=== PATIENT | female | born 1985 | race Caucasian/White ===

== ENCOUNTER 2019-01-06 18:19 | Observation (INO) | payer OTHER ==
[2019-01-06] MEDS ORDERED: Zofran 4 MG/2 ML VIAL IV ONE (18:43)
[2019-01-06] MEDS ORDERED: TYLENOL 325 MG PO STA (18:43)
[2019-01-06] MEDS ORDERED: Sodium Chloride 0.9% 1000 ML 1,000 ML IV STA (18:43)
[2019-01-06] MEDS ORDERED: Unasyn 3GM / NaCl 100ML 3 GM/100 ML IVPB IV STA (18:43)
[2019-01-06] MEDS ORDERED: TENIVAC VIAL IM ONE ×2 (18:46→18:59)
[2019-01-06] MEDS ORDERED: MORPHINE SULFATE 4 MG INJ IV ONE (18:46)
[2019-01-06] MEDS ORDERED: Zofran 4 MG/2 ML VIAL ONE (18:57)
[2019-01-06] MEDS ORDERED: Sodium Chloride 0.9% 1000 ML 1,000 ML ONE (18:58)
[2019-01-06] MEDS ORDERED: MORPHINE SULFATE 4 MG INJ ONE (18:58)
[2019-01-06] MEDS ORDERED: TYLENOL 325 MG ONE (18:58)
[2019-01-06] MEDS ORDERED: Unasyn 3GM / NaCl 100ML 3 GM/100 ML IVPB ONE (18:58)
[2019-01-06 19:03] LABS: Absolute Neutrophil Ct (ANC) 19.19 (1.4-6.9); BASOPHIL % 0.2 % (0.0-0.4); Basophil (Absolute #) 0.04 (0-0.4); Eosinophil % 0.4 % (0.00-5.0); Eosinophil (Absolute #) 0.08 (0-0.5); Hematocrit 39.3 % (35-47); Lymphocytes % 2.9 % (24.0-44.0); Mean Cell Volume 92.5 fl (78-100); Mean Corpuscular Hemoglobin 30.6 pg (26-32); Mean Corpuscular Hgb Concent. 33.1 g/dl (32-36); Mean Platelet Volume 10.2 fl (6-9.5); Monocyte (Absolute #) 0.55 (0.0-1.3); Monocytes % 2.7 % (0.0-12.0); Neutrophil % 93.8 % (36.0-66.0); Platelet Count 216 K/mm3 (150-450); Red Blood Count 4.25 M/mm3 (4.1-5.4); Red Cell Distribution Width 13.4 % (11.5-14.0); White Blood Count 20.5 K/mm3 (4.0-10.5)
[2019-01-06 19:14] LABS: ANION GAP 13.3 MEQ/L (5-15); BLOOD UREA NITROGEN 5 mg/dL (7-17); CHLORIDE 97 mmol/L (98-107); Calcium 8.6 mg/dL (8.4-10.2); Carbon Dioxide 28 mmol/L (22-30); Creatinine 1 0.56 mg/dL (0.52-1.04); Glucose 118 mg/dL (74-106); SODIUM 136 mmol/L (137-145)
[2019-01-06 19:18] LABS: Potassium 2.9 mmol/L (3.5-5.1)
--- NOTE | 2019-01-06 19:19 | ERPHSYRPT ---
<KATELYN SCHUMACHER - Last Filed: 01/06/19 20:52> - History of Present Illness Source: patient Exam Limitations: no limitations Patient Subjective Stated Complaint: Dog bite Triage Nursing Assessment: Patient ambulated into ED and transferred self to bed. Patient A+O X 3. Patient's skin flushed, hot and dry. Patient complains of dog bites to right lower forearm, left breast and left arm. Patient has several open areas with redness of 23cm X 16cm to right lower forearm. Patient has several scabbed areas and bruising to left breast and left forearm. Patient states she was bit by her brother's dog yesterday at 0800. Patient complains of pain 09/03. Timing/Duration: yesterday Severity: severe Associated Symptoms: denies symptoms Hx Tetanus, Diphtheria Vaccination/Date Given: No Hx Influenza Vaccination/Date Given: No Immunizations Up to Date: Yes <VERONIQUE JIMENEZ - Last Filed: 01/07/19 09:06> - History of Present Illness Time Seen by Provider: 01/06/19 18:40 Physician History: in thethe patient is a 33-year-old [id number] female who presents with a chief complaint of a dog bite. She really was bitten by her brother's dog yesterday morning around 8 AM. She reportedly was there 3 times once to the right forearm, wants to the forearm , and she was bitten on the left breast. The bleeding was controlled prior to arrival to the emergency department. Her mother decided to bring her in to the emergency department for further evaluation and management given that the patient's right forearm seem to be more erythematous and swollen compared to yesterday began after the bite. H. and reports that her tetanus prophylaxis is not up-to-date. She's been taking anything for pain or for fever prior to arrival. She's endorsed having weeping apparent drainage coming from the wounds of the right forearm. The pain is described as a throbbing pain, constant, radiating the right arm into her right hand, and is severe. She denies any additional injuries. She denies IV drug use and alcohol use. The patient is a smoker but denies any immunosuppression typically diabetes mellitus. (VERONIQUE JIMENEZ) Allergies/Adverse Reactions: No Known Drug Allergies Allergy (Unverified 01/06/19 18:32) Home Medications: Amitriptyline HCl [Elavil] 100 mg PO HS 01/06/19 [History] Ropinirole HCl [Ropinirole ER] 2 mg PO HS 01/06/19 [History] - Review of Systems Constitutional: Chills Eyes: No Symptoms Ears, Nose, & Throat: No Symptoms Respiratory: No Symptoms, No Cough Cardiac: No Symptoms Genitourinary Symptoms: No Symptoms Musculoskeletal: Other (Pain and tendenress to the R forearm) Skin: Cellulitis, Other (Dog bite to R forearm, L forearm, L breast, and R hand with cellulitis to the R forearm) All Other Systems: Reviewed and Negative <VERONIQUE JIMENEZ - Last Filed: 01/07/19 09:06> - Past Medical History Pertinent Past Medical History: Yes Neurological History: Migraines, Other ENT History: No Pertinent History Cardiac History: No Pertinent History Respiratory History: No Pertinent History Endocrine Medical History: No Pertinent History Musculoskeletal History: No Pertinent History GI Medical History: No Pertinent History History: No Pertinent History Psycho-Social History: No Pertinent History Female Reproductive Disorders: No Pertinent History Other Medical History: Restless leg syndrome - Past Surgical History Past Surgical History: No Neuro Surgical History: No Pertinent History Cardiac: No Pertinent History Respiratory: No Pertinent History Gastrointestinal: Cholecystectomy Genitourinary: No Pertinent History Musculoskeletal: No Pertinent History Female Surgical History: Section, Tubal Ligation - Social History Smoking Status: Current every day smoker How long have you smoked: years Exposure to second hand smoke: No Drug Use: none Patient Lives Alone: No - Female History Hx Last Menstrual Period: irregular Hx Now: No <VERONIQUE JIMENEZ - Last Filed: 01/07/19 09:06> - Physical Exam General Appearance: mild distress Eye Exam: PERRL/EOMI, eyes nml inspection Ears, Nose, Throat Exam: normal ENT inspection Neck Exam: normal inspection Respiratory Exam: normal breath sounds, lungs clear, No chest tenderness, No airway intact, No diminished breath sounds, No accessory muscle use Cardiovascular Exam: normal heart sounds, normal peripheral pulses, tachycardia , capillary refill <2 sec, capillary refill 2-3 sec, edema, other (Tachycardic) , No pulse deficit Gastrointestinal/Abdomen Exam: soft, normal bowel sounds Back Exam: normal inspection Extremity Exam: other (Motor function intact in the ulnar, radial, and medial nerve distribution) Neurologic Exam: alert, oriented x 3, cooperative, other (Sensation in the R and L hand intact and equal to gross touch in the median, ulnar, and radial nerve distribution. Patient was tearful.) Skin Exam: other (Open wound consistent with a bite noted to the anterior/ lateral aspect of the R forearm with multiple small puncture wounds noted medial to this area with serosanquneous drainage and significant amount of surrounding cellulitis. Ecchymosis and supperficial abrasions consistent with bite ordoñez noted to the anterior distal aspect of L wrist/forearm and to the L breast. Puncture wound already covered with eschar noted to the dorasal aspect of the R hand. ) SpO2 Interpretation: normal SpO2: 97 O2 Delivery: Room Air <VERONIQUE JIMENEZ - Last Filed: 01/07/19 09:06> - Nursing Vital Signs Nursing Vital Signs: Initial Vital Signs Temperature 102.9 F 01/06/19 18:35 Pulse Rate 122 H 01/06/19 18:35 Respiratory Rate 20 01/06/19 18:35 Blood Pressure 127/75 01/06/19 18:35 O2 Sat by Pulse Oximetry 97 01/06/19 18:35 Pain Scale Pain Intensity 7 - Course EKG Interpreted by Me: RATE ([id number]), Sinus Tach, NORMAL AXIS, NORMAL INTERVALS, NORMAL QRS, NORMAL ST-T, Other (prolonged QTc; negative previous EKG for comparison) <KATELYN SCHUMACHER - Last Filed: 01/06/19 20:52> - Course Nursing assessment & vital signs reviewed: Yes <VERONIQUE JIMENEZ - Last Filed: 01/07/19 09:06> Ordered Tests: Active Orders 24 hr Category Date Time Status Up Ad Jana TOLERATED Activity 01/06/19 22:15 Active Code Status Order ROUTINE Care 01/06/19 22:15 Active EKG-ER Only STAT Care 01/06/19 20:[address] in Observation ROUTINE Care 01/06/19 22:15 Active Saline Lock ROUTINE Care 01/06/19 22:15 Active Telemetry q6h Care 01/06/19 22:15 Active Weight,Daily 0600 Care 01/06/19 22:15 Active Wound Care Routine Care 01/06/19 18:47 Completed FOREARM Stat Exams 01/06/19 19:29 Completed BLOOD CULTURE Stat Lab 01/06/19 19:01 Received BMP AM.LAB Lab 01/07/19 04:25 Completed BMP Stat Lab 01/06/19 19:01 Completed CBC W DIFF AM.LAB Lab 01/07/19 04:25 Completed CBC W DIFF Stat Lab 01/06/19 19:01 Completed CULTURE,WOUND Stat Lab 01/07/19 21:33 Received HCG QUALITATIVE,SERUM Stat Lab 01/06/19 19:01 Completed Lactic Acid Stat Lab 01/06/19 20:15 Completed MAGNESIUM Stat Lab 01/06/19 19:00 Completed UA W/RFX UR CULTURE Stat Lab 01/06/19 20:00 Completed EKG REPEAT IN AM RT 01/06/19 22:15 Completed Pulse Oximetry CONTINUOUS RT 01/06/19 22:15 Active Medication Summary Generic Name Dose Route Start Last Admin Trade Name Freq PRN Reason Stop Dose Admin Acetaminophen 325 mg 01/06/19 22:15 Tylenol 325 Mg PO 02/05/19 22:14 Q4H PRN PRN PAIN, FEVER, HEADACHE Amitriptyline HCl 100 mg 01/07/19 22:00 Amitriptyline Hcl 50 Mg Tablet PO 02/06/19 21:59 HS CAROLYNE Enoxaparin Sodium 40 mg 01/07/19 10:00 Enoxaparin Sodium SQ 02/06/19 09:59 DAILY CAROLYNE Famotidine 20 mg 01/06/19 22:15 01/07/19 01:04 Pepcid 20 Mg PO 02/05/19 22:14 20 mg BID CAROLYNE Administration Sodium Chloride 1,000 mls @ 200 mls/hr 01/06/19 22:15 01/07/19 07:59 Sodium Chloride 0.9% 1000 Ml IV 02/05/19 22:14 200 mls/hr .Q5H CAROLYNE Administration Ampicillin Sodium/Sulbactam Sodium 3 gm in 100 mls @ 200 mls/hr 01/07/19 07: 00 01/07/19 07:59 Unasyn 3gm / Nacl 100ml IV 02/06/19 06:59 200 mls/hr Q6HT CAROLYNE Administration Morphine Sulfate 4 mg 01/06/19 22:15 01/07/19 04:22 Morphine Sulfate 4 Mg Inj IV 01/11/19 22:14 4 mg Q4H PRN PRN Administration PAIN Mupirocin 1 gm 01/07/19 08:48 Bactroban Ointment TP 02/06/19 08:47 PRN PRN dressing change Ondansetron HCl 4 mg 01/06/19 22:15 Zofran 4 Mg/2 Ml Vial IV 02/05/19 22:14 Q8H PRN PRN NAUSEA/VOMITING Ropinirole HCl 2 mg 01/07/19 22:00 Requip 2mg Tab PO 02/06/19 21:59 HS CAROLYNE Discontinued Medications Generic Name Dose Route Start Last Admin Trade Name Freq PRN Reason Stop Dose Admin Acetaminophen 975 mg 01/06/19 18:43 01/06/19 19:25 Tylenol 325 Mg PO 01/06/19 18:44 975 mg STAT STA Administration Acetaminophen Confirm 01/06/19 18:58 Tylenol 325 Mg Administered 01/06/19 18:59 Dose 975 mg .ROUTE .STK-MED ONE Diphtheria/Tetanus/Acell Pertussis 0.5 ml 01/06/19 19:36 01/06/19 20:00 Adacel Vial IM 01/06/19 19:37 0.5 ml .ONCE ONE Administration Sodium Chloride 1,000 mls @ 999 mls/hr 01/06/19 18:43 01/06/19 19:25 Sodium Chloride 0.9% 1000 Ml IV 01/06/19 19:43 999 mls/hr .Q1H1M STA Administration Ampicillin Sodium/Sulbactam Sodium 3 gm in 100 mls @ 200 mls/hr 01/06/19 18: 43 01/06/19 19:22 Unasyn 3gm / Nacl 100ml IV 01/06/19 19:12 200 mls/hr STAT STA 200 mls/hr Administration Sodium Chloride Confirm 01/06/19 18:58 Sodium Chloride 0.9% 1000 Ml Administered 01/06/19 18:59 Dose 1,000 mls @ ud .ROUTE .STK-MED ONE Ampicillin Sodium/Sulbactam Sodium Confirm 01/06/19 18:58 Unasyn 3gm / Nacl 100ml Administered 01/06/19 18:59 Dose 3 gm in 100 mls @ ud .ROUTE .STK-MED ONE Potassium Chloride/Sodium Chloride 1,000 mls @ 100 mls/hr 01/06/19 19:30 Sodium Chloride 0.9% W/ 20 Meq Kcl/Liter IV 02/05/19 19:29 .Q10H CAROLYNE Magnesium Sulfate/Dextrose 100 mls @ 200 mls/hr 01/06/19 19:40 01/06/19 20:00 Magnesium 1 Gm / 100 Ml D5w IV 01/06/19 20:09 200 mls/hr STAT ONE Administration Magnesium Sulfate/Dextrose Confirm 01/06/19 19:58 Magnesium 1 Gm / 100 Ml D5w Administered 01/06/19 19:59 Dose 100 mls @ ud IV .STK-MED ONE Ampicillin Sodium/Sulbactam Sodium 3 gm in 100 mls @ 200 mls/hr 01/07/19 00: 00 Unasyn 3gm / Nacl 100ml IV 02/06/19 00:00 Q6HT CAROLYNE Ampicillin Sodium/Sulbactam Sodium Confirm 01/07/19 00:27 Unasyn 3gm / Nacl 100ml Administered 01/07/19 00:28 Dose 3 gm in 100 mls @ ud .ROUTE .STK-MED ONE Ampicillin Sodium/Sulbactam Sodium 3 gm in 100 mls @ 200 mls/hr 01/07/19 01: 00 01/07/19 01:03 Unasyn 3gm / Nacl 100ml IV 02/06/19 00:59 200 mls/hr Q6HT CAROLYNE Administration Morphine Sulfate 6 mg 01/06/19 18:46 01/06/19 19:17 Morphine Sulfate 4 Mg Inj IV 01/06/19 18:47 6 mg STAT ONE Administration Morphine Sulfate Confirm 01/06/19 18:58 Morphine Sulfate 4 Mg Inj Administered 01/06/19 18:59 Dose 8 mg .ROUTE .STK-MED ONE Ondansetron HCl 4 mg 01/06/19 18:43 01/06/19 19:21 Zofran 4 Mg/2 Ml Vial IV 01/06/19 18:44 4 mg STAT ONE Administration Ondansetron HCl Confirm 01/06/19 18:57 Zofran 4 Mg/2 Ml Vial Administered 01/06/19 18:58 Dose 4 mg .ROUTE .STK-MED ONE Potassium Chloride 40 meq 01/06/19 19:23 01/06/19 20:03 Klor Con 10 Meq PO 01/06/19 19:24 40 meq STAT ONE Administration Potassium Chloride Confirm 01/06/19 19:38 Klor Con 10 Meq Administered 01/06/19 19:39 Dose 40 meq PO .STK-MED ONE Tetanus/Diphtheria Toxoids Adsorbed 0.5 ml 01/06/19 18:46 Tenivac Vial IM 01/06/19 18:47 .ONCE ONE Tetanus/Diphtheria Toxoids Adsorbed Confirm 01/06/19 18:59 Tenivac Vial Administered 01/06/19 19:00 Dose 0.5 ml IM .STK-MED ONE Lab/Rad Data: Laboratory Result Diagrams 01/06/19 19:01 01/06/19 19:01 Laboratory Results 01/06/19 01/06/19 01/06/19 Range/Units 20:15 20:00 19:01 WBC (4.0-10.5) K/mm3 RBC (4.1-5.4) M/mm3 Hgb (12.0-16.0) gm/dl Hct (35-47) % MCV (78-100) fl MCH (26-32) pg MCHC (32-36) g/dl RDW (11.5-14.0) % Plt Count (150-450) K/mm3 MPV (6-9.5) fl Gran % (36.0-66.0) % Eos # (Auto) (0-0.5) Absolute Lymphs (auto) (1.0-4.6) Absolute Monos (auto) (0.0-1.3) Lymphocytes % (24.0-44.0) % Monocytes % (0.0-12.0) % Eosinophils % (0.00-5.0) % Basophils % (0.0-0.4) % Absolute Granulocytes (1.4-6.9) Basophils # (0-0.4) Sodium (137-145) mmol/L Potassium (3.5-5.1) mmol/L Chloride (98-107) mmol/L Carbon Dioxide (22-30) mmol/L Anion Gap (5-15) MEQ/L BUN (7-17) mg/dL Creatinine (0.52-1.04) mg/dL Estimated GFR ML/MIN Glucose (74-106) mg/dL Lactic Acid 1.8 (0.4-2.0) Calcium (8.4-10.2) mg/dL Magnesium (1.6-2.3) mg/dL Serum , Qual NEGATIVE (Negative) Urine Color YELLOW (YELLOW) Urine Appearance SLIGHTLY CLOUDY (CLEAR) Urine pH 6.0 (5-6) Ur Specific [place] 1.004 (1.005-1.025) Urine Protein NEGATIVE (Negative) Urine Ketones NEGATIVE (NEGATIVE) Urine Blood NEGATIVE (0-5) Rohit/ul Urine Nitrite NEGATIVE (NEGATIVE) Urine Bilirubin NEGATIVE (NEGATIVE) Urine Urobilinogen NEGATIVE (0-1) mg/dL Ur Leukocyte Esterase NEGATIVE (NEGATIVE) Urine WBC (Auto) 3-5 (0-5) /HPF Urine RBC (Auto) 0-2 (0-2) /HPF U Epithel Cells (Auto) RARE (FEW) /HPF Urine Bacteria (Auto) NONE (NEGATIVE) /HPF Urine Culture Reflexed NO (NO) Urine Glucose NEGATIVE (NEGATIVE) mg/dL 01/06/19 01/06/19 01/06/19 Range/Units 19:01 19:01 19:00 WBC 20.5 H (4.0-10.5) K/mm3 RBC 4.25 (4.1-5.4) M/mm3 Hgb 13.0 (12.0-16.0) gm/dl Hct 39.3 (35-47) % MCV 92.5 (78-100) fl MCH 30.6 (26-32) pg MCHC 33.1 (32-36) g/dl RDW 13.4 (11.5-14.0) % Plt Count 216 (150-450) K/mm3 MPV 10.2 H (6-9.5) fl Gran % 93.8 H (36.0-66.0) % Eos # (Auto) 0.08 (0-0.5) Absolute Lymphs (auto) 0.60 L (1.0-4.6) Absolute Monos (auto) 0.55 (0.0-1.3) Lymphocytes % 2.9 L (24.0-44.0) % Monocytes % 2.7 (0.0-12.0) % Eosinophils % 0.4 (0.00-5.0) % Basophils % 0.2 (0.0-0.4) % Absolute Granulocytes 19.19 H (1.4-6.9) Basophils # 0.04 (0-0.4) Sodium 136 L (137-145) mmol/L Potassium 2.9 L* (3.5-5.1) mmol/L Chloride 97 L (98-107) mmol/L Carbon Dioxide 28 (22-30) mmol/L Anion Gap 13.3 (5-15) MEQ/L BUN 5 L (7-17) mg/dL Creatinine 0.56 (0.52-1.04) mg/dL Estimated GFR > 60.0 ML/MIN Glucose 118 H (74-106) mg/dL Lactic Acid (0.4-2.0) Calcium 8.6 (8.4-10.2) mg/dL Magnesium 1.4 L (1.6-2.3) mg/dL Serum , Qual (Negative) Urine Color (YELLOW) Urine Appearance (CLEAR) Urine pH (5-6) Ur Specific [place] (1.005-1.025) Urine Protein (Negative) Urine Ketones (NEGATIVE) Urine Blood (0-5) Rohit/ul Urine Nitrite (NEGATIVE) Urine Bilirubin (NEGATIVE) Urine Urobilinogen (0-1) mg/dL Ur Leukocyte Esterase (NEGATIVE) Urine WBC (Auto) (0-5) /HPF Urine RBC (Auto) (0-2) /HPF U Epithel Cells (Auto) (FEW) /HPF Urine Bacteria (Auto) (NEGATIVE) /HPF Urine Culture Reflexed (NO) Urine Glucose (NEGATIVE) mg/dL - Progress Discussed with : Harshad (@20:47, spoke with Dr Love, hospitalist at [facility] about the patient and her presentation and lab results. Dr Love accepted the patient for observation to [facility].) Will see patient in: hospital (observation) Counseled pt/family regarding: lab results, diagnosis, need for follow-up, rad results <KATELYN SCHUMACHER - Last Filed: 01/06/19 20:52> - Progress Progress: unchanged <VERONIQUE JIMENEZ - Last Filed: 01/07/19 09:06> - Progress Progress Note: 01/06/19 19:25 the patient presents with a chief complaint of an ongoing and appears to have an open wound with purulent drainage noted to the right forearm and significant cellulitis. Given the patient is febrile tachycardic and with the source of her stairs and a cellulitis of the right forearm secondary to this plan I suspect the patient is septic from this. She's received 3 g of Unasyn in the emergency department and a sepsis workup is currently pending I would have been ordered a plain film of the right forearm the above evidence of foreign body,fracture, or evidence of free air there was suggests forming organism as the culprit of her cellulitis. I informed the patient that she would necessitate admission for IV antibiotics but currently she is refusing admission at this time for concerns for childcare. Her mother is with her at bedside attempting to convince her to stay for admission. Patient cares has been transitioned to workup plan for admission if the patient agrees. Otherwise, the patient wanted to sign out AMA and was sent home with antibiotic therapy in addition to pain medication. 01/07/19 09:02 (VERONIQUE JIMENEZ) - Departure Departure Disposition: Observation ([facility] to telemetry to Dr Love) Critical Care Time: No <KATELYN SCHUMACHER - Last Filed: 01/06/19 20:52> <VERONIQUE JIMENEZ - Last Filed: 01/07/19 09:06> - Departure Clinical Impression: Cellulitis of right forearm, Dog bite of multiple sites, Hypokalemia, Hypomagnesemia, Sepsis Dog bite of right forearm with infection Qualifiers: Encounter type: initial encounter Qualified Code(s): S51.851A - Open bite of right forearm, initial encounter Condition: Fair
[2019-01-06] MEDS ORDERED: Klor Con 10 MEQ PO ONE ×2 (19:23→19:38)
[2019-01-06] MEDS ORDERED: Sodium Chloride 0.9% W/ 20 mEq KCl/LITER 1,000 ML IV SCH (19:30)
[2019-01-06] MEDS ORDERED: Adacel Vial IM ONE (19:36)
[2019-01-06] MEDS ORDERED: Magnesium 1 Gm / 100 Ml D5W*** 100 ML IV ONE ×2 (19:40→19:58)
[2019-01-06 21:02] LABS: Appearance SLIGHTLY CLOUDY (CLEAR); Bilirubin NEGATIVE (NEGATIVE); Blood NEGATIVE Ery/ul (0-5); Epithelial Cells RARE /HPF (FEW); Glucose NEGATIVE (NEGATIVE); Ketones NEGATIVE (NEGATIVE); Leukocyte Esterase NEGATIVE (NEGATIVE); Nitrite NEGATIVE (NEGATIVE); Protein,Urine Dip NEGATIVE (Negative); RBC 0-2 /HPF (0-2); Specific Gravity 1.004 (1.005-1.025); Urobilinogen NEGATIVE mg/dL (0-1)
[2019-01-06] MEDS ORDERED: TYLENOL 325 MG PO PRN (22:15)
[2019-01-06] MEDS ORDERED: Zofran 4 MG/2 ML VIAL IV PRN (22:15)
[2019-01-06] MEDS: Sodium Chloride 0.9% 1000 ML 1,000 ML IV SCH (23:27)
[2019-01-07] MEDS ORDERED: Unasyn 3GM / NaCl 100ML 3 GM/100 ML IVPB ONE (00:27)
[2019-01-07] MEDS ORDERED: Unasyn 3GM / NaCl 100ML 3 GM/100 ML IVPB IV SCH ×2 (01:00)
[2019-01-07] MEDS: Pepcid 20 MG PO SCH ×3 (01:04→21:04)
[2019-01-07] MEDS: Sodium Chloride 0.9% 1000 ML 1,000 ML IV SCH ×4 (04:22→22:20)
[2019-01-07] MEDS: MORPHINE SULFATE 4 MG INJ IV PRN ×5 (04:22→20:56)
[2019-01-07 04:57] LABS: Absolute Neutrophil Ct (ANC) 12.92 (1.4-6.9); BASOPHIL % 0.1 % (0.0-0.4); Basophil (Absolute #) 0.02 (0-0.4); Eosinophil (Absolute #) 0.14 (0-0.5); Hematocrit 34.2 % (35-47); Hemoglobin 10.9 gm/dl (12.0-16.0); Lymphocyte (Absolute #) 0.68 (1.0-4.6); Lymphocytes % 4.8 % (24.0-44.0); Mean Corpuscular Hgb Concent. 31.9 g/dl (32-36); Mean Platelet Volume 10.3 fl (6-9.5); Monocyte (Absolute #) 0.43 (0.0-1.3); Neutrophil % 91.1 % (36.0-66.0); Platelet Count 182 K/mm3 (150-450); Red Cell Distribution Width 13.6 % (11.5-14.0); White Blood Count 14.2 K/mm3 (4.0-10.5)
[2019-01-07 05:00] LABS: Mean Corpuscular Hemoglobin 30.2 pg (26-32)
[2019-01-07 05:02] LABS: ANION GAP 8.2 MEQ/L (5-15); BLOOD UREA NITROGEN 8 mg/dL (7-17); CHLORIDE 106 mmol/L (98-107); Calcium 7.5 mg/dL (8.4-10.2); Carbon Dioxide 29 mmol/L (22-30); Glucose 141 mg/dL (74-106); MAGNESIUM 2.1 mg/dL (1.6-2.3); Potassium 3.1 mmol/L (3.5-5.1); SODIUM 140 mmol/L (137-145)
[2019-01-07] MEDS: Unasyn 3GM / NaCl 100ML 3 GM/100 ML IVPB IV SCH ×3 (07:59→18:00)
--- NOTE | 2019-01-07 08:42 | PCM.HP ---
History of Present Illness - Chief Complaint Chief Complaint: Right forearm swelling due to dog bite History of Present Illness: is a 33 year old female.Patient complains of dog bites to right lower forearm, left breast and left arm. Patient has several open areas with redness of 23cm X 16cm to right lower forearm. Patient has several scabbed areas and bruising to left breast and left forearm. Patient states she was bit by her brother's dog yesterday at 0800. Patient complains of pain 09/03. Timing/Duration: yesterday Severity: severe Associated Symptoms: denies symptoms Hx Tetanus, Diphtheria Vaccination/Date Given: No Hx Influenza Vaccination/Date Given: No - Review of Systems Constitutional: No Fever, No Chills Eyes: No Symptoms Ears, Nose, & Throat: No Symptoms Respiratory: No Cough, No Short Of Breath Cardiac: No Chest Pain, No Edema, No Syncope Abdominal/Gastrointestinal: No Abdominal Pain, No Nausea, No Vomiting, No Diarrhea Genitourinary Symptoms: No Dysuria Musculoskeletal: No Back Pain, No Neck Pain Skin: No Rash Neurological: No Dizziness, No Focal Weakness, No Sensory Changes Psychological: No Symptoms Endocrine: No Symptoms Hematologic/Lymphatic: No Symptoms Immunological/Allergic: No Symptoms Medications & Allergies Home Medications: Home Medication List Amitriptyline HCl [Elavil] 100 mg PO HS 01/06/19 [History Confirmed 01/06/19] Ropinirole HCl [Ropinirole ER] 2 mg PO HS 01/06/19 [History Confirmed 01/06/19] Allergies/Adverse Reactions: Allergies Allergy/AdvReac Type Severity Reaction Status Date / Time No Known Drug Allergies Allergy Unverified 01/06/19 18:32 - Past Medical History Past Medical History: Yes Neurological History: Migraines, Other ENT History: No Pertinent History Cardiac History: No Pertinent History Respiratory History: No Pertinent History Endocrine Medical History: No Pertinent History Musculoskelatal History: No Pertinent History GI Medical History: No Pertinent History History: No Pertinent History Pyscho-Social History: No Pertinent History Reproductive Disorders: No Pertinent History Comment: Restless leg syndrome - Female History Hx Last Menstrual Period: irregular Are you now?: No - Past Surgical History Past Surgical History: No Neuro Surgical History: No Pertinent History Cardiac History: No Pertinent History Respiratory Surgery: No Pertinent History GI Surgical History: Cholecystectomy Genitourinary Surgical Hx: No Pertinent History Musculskeletal Surgical Hx: No Pertinent History Female Surgical History: Section, Tubal Ligation - Social History Smoking Status: Current every day smoker How long have you smoked: years Exposure to second hand smoke: Yes Alcohol: None Drug Use: none - Physical Exam Vital Signs: Vital Signs - 24 hr Temp Pulse Resp BP Pulse Ox 01/07/19 07:42 99.5 F 66 17 111/56 96 01/07/19 04:00 99.5 F 106 H 14 97/53 95 01/07/19 00:06 98.9 F 104 H 16 98/52 94 L 01/06/19 23:55 99.3 F 63 16 100/51 94 L 01/06/19 22:15 94 L 01/06/19 21:21 100.8 F 01/06/19 19:28 97 01/06/19 18:35 102.9 F 122 H 20 127/75 97 Oxygen-Last 24 hours O2 Percentage 2 Liters = 28% General Appearance: no apparent distress, alert Neurologic Exam: alert, oriented x 3, cooperative, normal mood/affect, nml cerebellar function, nml station & gait, sensation nml, No motor deficits Eye Exam: PERRL/EOMI, eyes nml inspection Ears, Nose, Throat Exam: normal ENT inspection, TMs normal, pharynx normal, moist mucous membranes Neck Exam: normal inspection, non-tender, supple, full range of motion Respiratory Exam: normal breath sounds, lungs clear, No respiratory distress Cardiovascular Exam: regular rate/rhythm, normal heart sounds, normal peripheral pulses Gastrointestinal/Abdomen Exam: soft, normal bowel sounds, No tenderness, No mass Back Exam: normal inspection, normal range of motion, No CVA tenderness, No vertebral tenderness Extremity Exam: normal inspection, normal range of motion, pelvis stable Skin Exam: normal color, warm, dry, laceration, No rash Wound Assessment: Skin/Wound Assessment Wound/Incision Assessment Start: 01/07/19 00: 46 Text: Status: Active Freq: Q6H Protocol: Document 01/07/19 06:46 (Rec: 01/07/19 06:47 [id number]) Wound Photo Photo Taken No Lymphatic Exam: No adenopathy Results - Labs Lab/Micro Results: Lab Results-Last 24 Hours 11/12/19 11/12/19 11/12/19 Range/Units 19:00 19:01 19:01 WBC 20.5 H (4.0-10.5) K/mm3 RBC 4.25 (4.1-5.4) M/mm3 Hgb 13.0 (12.0-16.0) gm/dl Hct 39.3 (35-47) % MCV 92.5 (78-100) fl MCH 30.6 (26-32) pg MCHC 33.1 (32-36) g/dl RDW 13.4 (11.5-14.0) % Plt Count 216 (150-450) K/mm3 MPV 10.2 H (6-9.5) fl Gran % 93.8 H (36.0-66.0) % Eos # (Auto) 0.08 (0-0.5) Absolute Lymphs (auto) 0.60 L (1.0-4.6) Absolute Monos (auto) 0.55 (0.0-1.3) Lymphocytes % 2.9 L (24.0-44.0) % Monocytes % 2.7 (0.0-12.0) % Eosinophils % 0.4 (0.00-5.0) % Basophils % 0.2 (0.0-0.4) % Absolute Granulocytes 19.19 H (1.4-6.9) Basophils # 0.04 (0-0.4) Sodium 136 L (137-145) mmol/L Potassium 2.9 L* (3.5-5.1) mmol/L Chloride 97 L (98-107) mmol/L Carbon Dioxide 28 (22-30) mmol/L Anion Gap 13.3 (5-15) MEQ/L BUN 5 L (7-17) mg/dL Creatinine 0.56 (0.52-1.04) mg/dL Estimated GFR > 60.0 ML/MIN Glucose 118 H (74-106) mg/dL Lactic Acid (0.4-2.0) Calcium 8.6 (8.4-10.2) mg/dL Magnesium 1.4 L (1.6-2.3) mg/dL Serum , Qual (Negative) Urine Color (YELLOW) Urine Appearance (CLEAR) Urine pH (5-6) Ur Specific [place] (1.005-1.025) Urine Protein (Negative) Urine Ketones (NEGATIVE) Urine Blood (0-5) Rohit/ul Urine Nitrite (NEGATIVE) Urine Bilirubin (NEGATIVE) Urine Urobilinogen (0-1) mg/dL Ur Leukocyte Esterase (NEGATIVE) Urine WBC (Auto) (0-5) /HPF Urine RBC (Auto) (0-2) /HPF U Epithel Cells (Auto) (FEW) /HPF Urine Bacteria (Auto) (NEGATIVE) /HPF Urine Culture Reflexed (NO) Urine Glucose (NEGATIVE) mg/dL 01/06/19 01/06/19 01/06/19 Range/Units 19:01 20:00 20:15 WBC (4.0-10.5) K/mm3 RBC (4.1-5.4) M/mm3 Hgb (12.0-16.0) gm/dl Hct (35-47) % MCV (78-100) fl MCH (26-32) pg MCHC (32-36) g/dl RDW (11.5-14.0) % Plt Count (150-450) K/mm3 MPV (6-9.5) fl Gran % (36.0-66.0) % Eos # (Auto) (0-0.5) Absolute Lymphs (auto) (1.0-4.6) Absolute Monos (auto) (0.0-1.3) Lymphocytes % (24.0-44.0) % Monocytes % (0.0-12.0) % Eosinophils % (0.00-5.0) % Basophils % (0.0-0.4) % Absolute Granulocytes (1.4-6.9) Basophils # (0-0.4) Sodium (137-145) mmol/L Potassium (3.5-5.1) mmol/L Chloride (98-107) mmol/L Carbon Dioxide (22-30) mmol/L Anion Gap (5-15) MEQ/L BUN (7-17) mg/dL Creatinine (0.52-1.04) mg/dL Estimated GFR ML/MIN Glucose (74-106) mg/dL Lactic Acid 1.8 (0.4-2.0) Calcium (8.4-10.2) mg/dL Magnesium (1.6-2.3) mg/dL Serum , Qual NEGATIVE (Negative) Urine Color YELLOW (YELLOW) Urine Appearance SLIGHTLY CLOUDY (CLEAR) Urine pH 6.0 (5-6) Ur Specific [place] 1.004 (1.005-1.025) Urine Protein NEGATIVE (Negative) Urine Ketones NEGATIVE (NEGATIVE) Urine Blood NEGATIVE (0-5) Rohit/ul Urine Nitrite NEGATIVE (NEGATIVE) Urine Bilirubin NEGATIVE (NEGATIVE) Urine Urobilinogen NEGATIVE (0-1) mg/dL Ur Leukocyte Esterase NEGATIVE (NEGATIVE) Urine WBC (Auto) 3-5 (0-5) /HPF Urine RBC (Auto) 0-2 (0-2) /HPF U Epithel Cells (Auto) RARE (FEW) /HPF Urine Bacteria (Auto) NONE (NEGATIVE) /HPF Urine Culture Reflexed NO (NO) Urine Glucose NEGATIVE (NEGATIVE) mg/dL 01/07/19 01/07/19 Range/Units 04:25 04:25 WBC 14.2 H (4.0-10.5) K/mm3 RBC 3.60 L (4.1-5.4) M/mm3 Hgb 10.9 L (12.0-16.0) gm/dl Hct 34.2 L (35-47) % MCV 95.0 (78-100) fl MCH 30.2 (26-32) pg MCHC 31.9 L (32-36) g/dl RDW 13.6 (11.5-14.0) % Plt Count 182 (150-450) K/mm3 MPV 10.3 H (6-9.5) fl Gran % 91.1 H (36.0-66.0) % Eos # (Auto) 0.14 (0-0.5) Absolute Lymphs (auto) 0.68 L (1.0-4.6) Absolute Monos (auto) 0.43 (0.0-1.3) Lymphocytes % 4.8 L (24.0-44.0) % Monocytes % 3.0 (0.0-12.0) % Eosinophils % 1.0 (0.00-5.0) % Basophils % 0.1 (0.0-0.4) % Absolute Granulocytes 12.92 H (1.4-6.9) Basophils # 0.02 (0-0.4) Sodium 140 (137-145) mmol/L Potassium 3.1 L (3.5-5.1) mmol/L Chloride 106 (98-107) mmol/L Carbon Dioxide 29 (22-30) mmol/L Anion Gap 8.2 (5-15) MEQ/L BUN 8 (7-17) mg/dL Creatinine 0.50 L (0.52-1.04) mg/dL Estimated GFR > 60.0 ML/MIN Glucose 141 H (74-106) mg/dL Lactic Acid (0.4-2.0) Calcium 7.5 L (8.4-10.2) mg/dL Magnesium 2.1 (1.6-2.3) mg/dL Serum , Qual (Negative) Urine Color (YELLOW) Urine Appearance (CLEAR) Urine pH (5-6) Ur Specific [place] (1.005-1.025) Urine Protein (Negative) Urine Ketones (NEGATIVE) Urine Blood (0-5) Rohit/ul Urine Nitrite (NEGATIVE) Urine Bilirubin (NEGATIVE) Urine Urobilinogen (0-1) mg/dL Ur Leukocyte Esterase (NEGATIVE) Urine WBC (Auto) (0-5) /HPF Urine RBC (Auto) (0-2) /HPF U Epithel Cells (Auto) (FEW) /HPF Urine Bacteria (Auto) (NEGATIVE) /HPF Urine Culture Reflexed (NO) Urine Glucose (NEGATIVE) mg/dL - Radiology Impressions Radiology Exams & Impressions: Radiology Procedures Category Date Time Status FOREARM Stat Exams 01/06/19 19:29 Taken - Other Procedures and Tests Respiratory Therapy 01/07/19 04:47 Oxygen Nasal Cannula 2 lpm Assessment/Plan (1) Cellulitis of right forearm Current Visit: Yes Status: Acute Assessment & Plan: Chief Complaint Diagnosis Right forearm cellulitis / dog bite Allergies Allergy/AdvReac Type Severity Reaction Status Date / Time No Known Drug Allergies Allergy Unverified 01/06/19 18:32 Vital Signs (Last 24 hours) Temp Pulse Resp BP Pulse Ox 01/07/19 07:42 99.5 F 66 17 111/56 96 01/07/19 04:00 99.5 F 106 H 14 97/53 95 01/07/19 00:06 98.9 F 104 H 16 98/52 94 L 01/06/19 23:55 99.3 F 63 16 100/51 94 L 01/06/19 22:15 94 L 01/06/19 21:21 100.8 F 01/06/19 19:28 97 01/06/19 18:35 102.9 F 122 H 20 127/75 97 Home Medications Medication Instructions Recorded Confirmed Last Taken Type Amitriptyline HCl [Elavil] 100 mg PO HS 01/06/19 01/06/19 01/05/19 History Ropinirole HCl [Ropinirole ER] 2 mg PO HS 01/06/19 01/06/19 01/06/19 History Current Medications Generic Name Dose Route Start Last Admin Trade Name Freq PRN Reason Stop Dose Admin Acetaminophen 325 mg 01/06/19 22:15 Tylenol 325 Mg PO 02/05/19 22:14 Q4H PRN PRN PAIN, FEVER, HEADACHE Amitriptyline HCl 100 mg 01/07/19 22:00 Amitriptyline Hcl 50 Mg Tablet PO 02/06/19 21:59 HS CAROLYNE Enoxaparin Sodium 40 mg 01/07/19 10:00 Enoxaparin Sodium SQ 02/06/19 09:59 DAILY CAROLYNE Famotidine 20 mg 01/06/19 22:15 01/07/19 01:04 Pepcid 20 Mg PO 02/05/19 22:14 20 mg BID CAROLYNE Administration Sodium Chloride 1,000 mls @ 200 mls/hr 01/06/19 22:15 01/07/19 07:59 Sodium Chloride 0.9% 1000 Ml IV 02/05/19 22:14 200 mls/hr .Q5H CAROLYNE Administration Ampicillin Sodium/Sulbactam Sodium 3 gm in 100 mls @ 200 mls/hr 01/07/19 07: 00 01/07/19 07:59 Unasyn 3gm / Nacl 100ml IV 02/06/19 06:59 200 mls/hr Q6HT CAROLYNE Administration Morphine Sulfate 4 mg 01/06/19 22:15 01/07/19 04:22 Morphine Sulfate 4 Mg Inj IV 01/11/19 22:14 4 mg Q4H PRN PRN Administration PAIN Ondansetron HCl 4 mg 01/06/19 22:15 Zofran 4 Mg/2 Ml Vial IV 02/05/19 22:14 Q8H PRN PRN NAUSEA/VOMITING Ropinirole HCl 2 mg 01/07/19 22:00 Requip 2mg Tab PO 02/06/19 21:59 HS CAROLYNE Discontinued Medications Generic Name Dose Route Start Last Admin Trade Name Buddy PRN Reason Stop Dose Admin Acetaminophen 975 mg 01/06/19 18:43 01/06/19 19:25 Tylenol 325 Mg PO 01/06/19 18:44 975 mg STAT STA Administration Acetaminophen Confirm 01/06/19 18:58 Tylenol 325 Mg Administered 01/06/19 18:59 Dose 975 mg .ROUTE .STK-MED ONE Diphtheria/Tetanus/Acell Pertussis 0.5 ml 01/06/19 19:36 01/06/19 20:00 Adacel Vial IM 01/06/19 19:37 0.5 ml .ONCE ONE Administration Sodium Chloride 1,000 mls @ 999 mls/hr 01/06/19 18:43 01/06/19 19:25 Sodium Chloride 0.9% 1000 Ml IV 01/06/19 19:43 999 mls/hr .Q1H1M STA Administration Ampicillin Sodium/Sulbactam Sodium 3 gm in 100 mls @ 200 mls/hr 01/06/19 18: 43 01/06/19 19:22 Unasyn 3gm / Nacl 100ml IV 01/06/19 19:12 200 mls/hr STAT STA 200 mls/hr Administration Sodium Chloride Confirm 01/06/19 18:58 Sodium Chloride 0.9% 1000 Ml Administered 01/06/19 18:59 Dose 1,000 mls @ ud .ROUTE .STK-MED ONE Ampicillin Sodium/Sulbactam Sodium Confirm 01/06/19 18:58 Unasyn 3gm / Nacl 100ml Administered 01/06/19 18:59 Dose 3 gm in 100 mls @ ud .ROUTE .STK-MED ONE Potassium Chloride/Sodium Chloride 1,000 mls @ 100 mls/hr 01/06/19 19:30 Sodium Chloride 0.9% W/ 20 Meq Kcl/Liter IV 02/05/19 19:29 .Q10H CAROLYNE Magnesium Sulfate/Dextrose 100 mls @ 200 mls/hr 01/06/19 19:40 01/06/19 20:00 Magnesium 1 Gm / 100 Ml D5w IV 01/06/19 20:09 200 mls/hr STAT ONE Administration Magnesium Sulfate/Dextrose Confirm 01/06/19 19:58 Magnesium 1 Gm / 100 Ml D5w Administered 01/06/19 19:59 Dose 100 mls @ ud IV .STK-MED ONE Ampicillin Sodium/Sulbactam Sodium 3 gm in 100 mls @ 200 mls/hr 01/07/19 00: 00 Unasyn 3gm / Nacl 100ml IV 02/06/19 00:00 Q6HT CAROLYNE Ampicillin Sodium/Sulbactam Sodium Confirm 01/07/19 00:27 Unasyn 3gm / Nacl 100ml Administered 01/07/19 00:28 Dose 3 gm in 100 mls @ ud .ROUTE .STK-MED ONE Ampicillin Sodium/Sulbactam Sodium 3 gm in 100 mls @ 200 mls/hr 01/07/19 01: 00 01/07/19 01:03 Unasyn 3gm / Nacl 100ml IV 02/06/19 00:59 200 mls/hr Q6HT CAROLYNE Administration Morphine Sulfate 6 mg 01/06/19 18:46 01/06/19 19:17 Morphine Sulfate 4 Mg Inj IV 01/06/19 18:47 6 mg STAT ONE Administration Morphine Sulfate Confirm 01/06/19 18:58 Morphine Sulfate 4 Mg Inj Administered 01/06/19 18:59 Dose 8 mg .ROUTE .STK-MED ONE Ondansetron HCl 4 mg 01/06/19 18:43 01/06/19 19:21 Zofran 4 Mg/2 Ml Vial IV 01/06/19 18:44 4 mg STAT ONE Administration Ondansetron HCl Confirm 01/06/19 18:57 Zofran 4 Mg/2 Ml Vial Administered 01/06/19 18:58 Dose 4 mg .ROUTE .STK-MED ONE Potassium Chloride 40 meq 01/06/19 19:23 01/06/19 20:03 Klor Con 10 Meq PO 01/06/19 19:24 40 meq STAT ONE Administration Potassium Chloride Confirm 01/06/19 19:38 Klor Con 10 Meq Administered 01/06/19 19:39 Dose 40 meq PO .STK-MED ONE Tetanus/Diphtheria Toxoids Adsorbed 0.5 ml 01/06/19 18:46 Tenivac Vial IM 01/06/19 18:47 .ONCE ONE Tetanus/Diphtheria Toxoids Adsorbed Confirm 01/06/19 18:59 Tenivac Vial Administered 01/06/19 19:00 Dose 0.5 ml IM .STK-MED ONE Intake & Output (Last 24 hours) 01/04/19 01/05/19 01/06/19 01/07/19 11:59 11:59 11:59 11:59 Intake Total 1786 Balance 1786 Weight 67.6 kg Microbiology Results (Last 24 hours) 01/07/19 21:33 Arm - Right Lower Wound Culture - Pending 01/06/19 19:01 Blood Blood Culture Gram Stain - Pending 01/06/19 19:01 Blood Blood Culture - Pending 01/06/19 19:01 Blood Blood Culture Gram Stain - Pending 01/06/19 19:01 Blood Blood Culture - Pending Laboratory Results (Last 24 hours) 01/07/19 01/07/19 01/06/19 04:25 04:25 20:15 WBC 14.2 H RBC 3.60 L Hgb 10.9 L Hct 34.2 L MCV 95.0 MCH 30.2 MCHC 31.9 L RDW 13.6 Plt Count 182 MPV 10.3 H Gran % 91.1 H Eos # (Auto) 0.14 Absolute Lymphs (auto) 0.68 L Absolute Monos (auto) 0.43 Lymphocytes % 4.8 L Monocytes % 3.0 Eosinophils % 1.0 Basophils % 0.1 Absolute Granulocytes 12.92 H Basophils # 0.02 Sodium 140 Potassium 3.1 L Chloride 106 Carbon Dioxide 29 Anion Gap 8.2 BUN 8 Creatinine 0.50 L Estimated GFR > 60.0 Glucose 141 H Lactic Acid 1.8 Calcium 7.5 L Magnesium 2.1 Serum , Qual Urine Color Urine Appearance Urine pH Ur Specific [place] Urine Protein Urine Ketones Urine Blood Urine Nitrite Urine Bilirubin Urine Urobilinogen Ur Leukocyte Esterase Urine WBC (Auto) Urine RBC (Auto) U Epithel Cells (Auto) Urine Bacteria (Auto) Urine Culture Reflexed Urine Glucose 01/06/19 01/06/19 01/06/19 20:00 19:01 19:01 WBC RBC Hgb Hct MCV MCH MCHC RDW Plt Count MPV Gran % Eos # (Auto) Absolute Lymphs (auto) Absolute Monos (auto) Lymphocytes % Monocytes % Eosinophils % Basophils % Absolute Granulocytes Basophils # Sodium 136 L Potassium 2.9 L* Chloride 97 L Carbon Dioxide 28 Anion Gap 13.3 BUN 5 L Creatinine 0.56 Estimated GFR > 60.0 Glucose 118 H Lactic Acid Calcium 8.6 Magnesium Serum , Qual NEGATIVE Urine Color YELLOW Urine Appearance SLIGHTLY CLOUDY Urine pH 6.0 Ur Specific [place] 1.004 Urine Protein NEGATIVE Urine Ketones NEGATIVE Urine Blood NEGATIVE Urine Nitrite NEGATIVE Urine Bilirubin NEGATIVE Urine Urobilinogen NEGATIVE Ur Leukocyte Esterase NEGATIVE Urine WBC (Auto) 3-5 Urine RBC (Auto) 0-2 U Epithel Cells (Auto) RARE Urine Bacteria (Auto) NONE Urine Culture Reflexed NO Urine Glucose NEGATIVE 01/06/19 01/06/19 19:01 19:00 WBC 20.5 H RBC 4.25 Hgb 13.0 Hct 39.3 MCV 92.5 MCH 30.6 MCHC 33.1 RDW 13.4 Plt Count 216 MPV 10.2 H Gran % 93.8 H Eos # (Auto) 0.08 Absolute Lymphs (auto) 0.60 L Absolute Monos (auto) 0.55 Lymphocytes % 2.9 L Monocytes % 2.7 Eosinophils % 0.4 Basophils % 0.2 Absolute Granulocytes 19.19 H Basophils # 0.04 Sodium Potassium Chloride Carbon Dioxide Anion Gap BUN Creatinine Estimated GFR Glucose Lactic Acid Calcium Magnesium 1.4 L Serum , Qual Urine Color Urine Appearance Urine pH Ur Specific [place] Urine Protein Urine Ketones Urine Blood Urine Nitrite Urine Bilirubin Urine Urobilinogen Ur Leukocyte Esterase Urine WBC (Auto) Urine RBC (Auto) U Epithel Cells (Auto) Urine Bacteria (Auto) Urine Culture Reflexed Urine Glucose Orders (Last 24 hours) Category Date Time Status Up Ad Jana TOLERATED Activity 01/06/19 22:15 Active Code Status Order ROUTINE Care 01/06/19 22:15 Active EKG-ER Only STAT Care 01/06/19 20:[address] in Observation ROUTINE Care 01/06/19 22:15 Active Saline Lock ROUTINE Care 01/06/19 22:15 Active Telemetry q6h Care 01/06/19 22:15 Active Weight,Daily 0600 Care 01/06/19 22:15 Active Wound Care Routine Care 01/06/19 18:47 Completed FOREARM Stat Exams 01/06/19 19:29 Taken BLOOD CULTURE Stat Lab 01/06/19 19:01 Received BMP AM.LAB Lab 01/07/19 04:25 Completed BMP Stat Lab 01/06/19 19:01 Completed CBC W DIFF AM.LAB Lab 01/07/19 04:25 Completed CBC W DIFF Stat Lab 01/06/19 19:01 Completed CULTURE,WOUND Stat Lab 01/07/19 21:33 Received HCG QUALITATIVE,SERUM Stat Lab 01/06/19 19:01 Completed Lactic Acid Stat Lab 01/06/19 20:15 Completed MAGNESIUM Routine Lab 01/07/19 04:25 Completed MAGNESIUM Stat Lab 01/06/19 19:00 Completed UA W/RFX UR CULTURE Stat Lab 01/06/19 20:00 Completed AMITRIPTYLINE HCL 50 mg Tab [AMITRIPTYLINE HCL 50 mg Med 01/07/19 22:00 Active Tablet] 100 mg PO HS Acetaminophen 325 mg [Tylenol 325 mg] Med 01/06/19 22:15 Active 325 mg PO Q4H PRN PRN Acetaminophen 325 mg [Tylenol 325 mg] Med 01/06/19 18:58 Discontinued 975 mg .ROUTE .STK-MED ONE Acetaminophen 325 mg [Tylenol 325 mg] Med 01/06/19 18:43 Discontinued 975 mg PO STAT STA Ampicillin/Sulbactam 3 gm [Unasyn 3GM / NaCl 100ML] Med 01/06/19 18:58 Discontinued 3 gm in 100 ml .ROUTE UD Ampicillin/Sulbactam 3 gm [Unasyn 3GM / NaCl 100ML] Med 01/07/19 00:27 Discontinued 3 gm in 100 ml .ROUTE UD Ampicillin/Sulbactam 3 gm [Unasyn 3GM / NaCl 100ML] Med 01/07/19 00:00 Discontinued 3 gm in 100 ml IV Q6HT Ampicillin/Sulbactam 3 gm [Unasyn 3GM / NaCl 100ML] Med 01/07/19 01:00 Discontinued 3 gm in 100 ml IV Q6HT Ampicillin/Sulbactam 3 gm [Unasyn 3GM / NaCl 100ML] Med 01/07/19 07:00 Active 3 gm in 100 ml IV Q6HT Ampicillin/Sulbactam 3 gm [Unasyn 3GM / NaCl 100ML] Med 01/06/19 18:43 Discontinued 3 gm in 100 ml IV STAT Diph,Pertuss(Acell),Tet Vac/Pf [Adacel Vial] Med 01/06/19 19:36 Discontinued 0.5 ml IM .ONCE ONE Enoxaparin Sodium [Enoxaparin Sodium] Med 01/07/19 10:00 Active 40 mg SQ DAILY Famotidine 20 mg [Pepcid 20 MG] Med 01/06/19 22:15 Active 20 mg PO BID Flu Vacc [id number](6Mos Up)/Pf [Fluzone Quad Med 01/07/19 10:00 Once Syringe] 60 mcg IM .ONCE ONE Magnesium Sulfate 1 gm/100 ml* [Magnesium 1 Gm / 100 Ml Med 01/06/19 19:40 Discontinued D5W] 100 ml IV STAT Magnesium Sulfate 1 gm/100 ml* [Magnesium 1 Gm / 100 Ml Med 01/06/19 19:58 Discontinued D5W] 100 ml IV UD Morphine Sulfate 4 mg Inj Med 01/06/19 22:15 Active 4 mg IV Q4H PRN PRN Morphine Sulfate 4 mg Inj Med 01/06/19 18:46 Discontinued 6 mg IV STAT ONE Morphine Sulfate 4 mg Inj Med 01/06/19 18:58 Discontinued 8 mg .ROUTE .STK-MED ONE NaCl 0.9% 1000 ml + KCl 20 Meq [Sodium Chloride 0.9% W/ Med 01/06/19 19:30 Discontinued 20 mEq KCl/LITER] 1,000 ml IV 100 mls/hr NaCl 0.9% 1000 ml [Sodium Chloride 0.9% 1000 ML] 1,000 Med 01/06/19 18:58 Discontinued ml .ROUTE UD NaCl 0.9% 1000 ml [Sodium Chloride 0.9% 1000 ML] 1,000 Med 01/06/19 22:15 Active ml IV 200 mls/hr NaCl 0.9% 1000 ml [Sodium Chloride 0.9% 1000 ML] 1,000 Med 01/06/19 18:43 Discontinued ml IV 999 mls/hr Ondansetron HCl 4 mg/2 ml [Zofran 4 MG/2 ML VIAL] Med 01/06/19 18:57 Discontinued 4 mg .ROUTE .STK-MED ONE Ondansetron HCl 4 mg/2 ml [Zofran 4 MG/2 ML VIAL] Med 01/06/19 22:15 Active 4 mg IV Q8H PRN PRN Ondansetron HCl 4 mg/2 ml [Zofran 4 MG/2 ML VIAL] Med 01/06/19 18:43 Discontinued 4 mg IV STAT ONE Potassium Chloride 10 Meq Tab* [Klor Con 10 MEQ] Med 01/06/19 19:38 Discontinued 40 meq PO .STK-MED ONE Potassium Chloride 10 Meq Tab* [Klor Con 10 MEQ] Med 01/06/19 19:23 Discontinued 40 meq PO STAT ONE Ropinirole 2Mg [Requip 2Mg Tab] Med 01/07/19 22:00 Active 2 mg PO HS Tetanus and Diphtheria Tox/Pf [Tenivac Vial] Med 01/06/19 18:46 Discontinued 0.5 ml IM .ONCE ONE Tetanus and Diphtheria Tox/Pf [Tenivac Vial] Med 01/06/19 18:59 Discontinued 0.5 ml IM .STK-MED ONE OT Screen per Nursing Assess ONCE OT 01/07/19 00:46 Active PT Screen per Nursing Assess ONCE PT 01/07/19 00:46 Active EKG REPEAT IN AM RT 01/06/19 22:15 Completed Oxygen Nasal Cannula 2 lpm RT 01/07/19 04:47 Active Pulse Oximetry CONTINUOUS RT 01/06/19 22:15 Active Smoking Cessation Education ONCE RT 01/07/19 00:46 Completed Code(s): L03.113 - CELLULITIS OF RIGHT UPPER LIMB (2) Dog bite of multiple sites Current Visit: Yes Status: Acute Code(s): W54.0XXA - BITTEN BY DOG, INITIAL ENCOUNTER (3) Dog bite of right forearm with infection Current Visit: Yes Status: Acute Qualifiers: Encounter type: initial encounter Qualified Code(s): S51.851A - Open bite of right forearm, initial encounter; L08.9 - Local infection of the skin and subcutaneous tissue, unspecified; W54.0XXA - Bitten by dog, initial encounter Code(s): S51.851A - OPEN BITE OF RIGHT FOREARM, INITIAL ENCOUNTER; L08.9 - LOCAL INFECTION OF THE SKIN AND SUBCUTANEOUS TISSUE, UNSP; W54.0XXA - BITTEN BY DOG, INITIAL ENCOUNTER (4) Hypokalemia Current Visit: Yes Status: Acute Code(s): E87.6 - HYPOKALEMIA (5) Hypomagnesemia Current Visit: Yes Status: Acute Code(s): E83.42 - HYPOMAGNESEMIA
[2019-01-07] MEDS ORDERED: Bactroban OINTMENT TP PRN ×2 (08:48→09:15)
--- NOTE | 2019-01-07 08:48 | XRAY ---
Indication: Dog bite. Comparison: None 2 views of the right forearm obtained. No bony, articular, or soft tissue abnormalities.
[2019-01-07] MEDS: ENOXAPARIN SODIUM SQ SCH (09:09)
[2019-01-07] MEDS ORDERED: FLUZONE QUAD 2019-2020 SYRINGE IM ONE (10:00)
[2019-01-07] MEDS: Nicoderm CQ 21 MG TOP SCH (13:53)
[2019-01-07] MEDS ORDERED: REQUIP 2MG TAB PO SCH (22:00)
[2019-01-07] MEDS ORDERED: AMITRIPTYLINE HCL 100 MG PO SCH (22:00)
[2019-01-07] MEDS ORDERED: ROPINIROLE HCL 2 MG PO SCH (22:00)
[2019-01-08] MEDS: Unasyn 3GM / NaCl 100ML 3 GM/100 ML IVPB IV SCH ×4 (00:15→17:33)
[2019-01-08] MEDS: Sodium Chloride 0.9% 1000 ML 1,000 ML IV SCH (03:51)
[2019-01-08 04:47] LABS: Hematocrit 32.5 % (35-47); Hemoglobin 10.2 gm/dl (12.0-16.0); Mean Cell Volume 96.2 fl (78-100); Mean Corpuscular Hgb Concent. 31.4 g/dl (32-36); Mean Platelet Volume 10.4 fl (6-9.5); Platelet Count 149 K/mm3 (150-450); Red Blood Count 3.38 M/mm3 (4.1-5.4); Red Cell Distribution Width 13.6 % (11.5-14.0); White Blood Count 12.4 K/mm3 (4.0-10.5)
[2019-01-08 04:51] LABS: Mean Corpuscular Hemoglobin 30.1 pg (26-32)
[2019-01-08 04:56] LABS: ALBUMIN 2.5 g/dL (3.5-5.0); ALKALINE PHOSPHATASE 97 U/L (38-126); ANION GAP 8.1 MEQ/L (5-15); BLOOD UREA NITROGEN 5 mg/dL (7-17); CHLORIDE 105 mmol/L (98-107); Calcium 7.3 mg/dL (8.4-10.2); Carbon Dioxide 26 mmol/L (22-30); Glucose 123 mg/dL (74-106); SGOT/AST 44 U/L (14-36); SGPT/ALT 48 U/L (0-35); SODIUM 137 mmol/L (137-145); Total Protein 5.7 g/dL (6.3-8.2)
[2019-01-08 05:01] LABS: Potassium 2.9 mmol/L (3.5-5.1)
[2019-01-08] MEDS: POTASSIUM CHLORIDE 20 mEq IN WATER 100ML 20 MEQ/100 ML BAG IV SCH ×2 (06:10→08:04)
[2019-01-08] MEDS: MORPHINE SULFATE 4 MG INJ IV PRN (08:08)
[2019-01-08] MEDS: Nicoderm CQ 21 MG TOP SCH (09:54)
[2019-01-08] MEDS: Pepcid 20 MG PO SCH (09:54)
[2019-01-08] MEDS: ENOXAPARIN SODIUM SQ SCH (09:55)
--- NOTE | 2019-01-08 13:05 | PCM.DS ---
Discharge Summary Date of Admission: 01/06/19 21:33 Admitting Physician: SUSANNE SANCHEZ Primary Care Provider: NO FAMILY DOCTOR Allergies Allergies No Known Drug Allergies Allergy (Unverified 01/06/19 18:32) Hospital Summary - Hospital Course Hospital Course: Last Vital Signs Temp 98.8 F 01/08/19 11:35 Pulse 99 H 01/08/19 11:35 Resp 16 01/08/19 11:35 BP 137/82 01/08/19 11:35 Pulse Ox 96 01/08/19 11:35 Allergies No Known Drug Allergies Allergy (Unverified 01/06/19 18:32) Active Medications Acetaminophen (Tylenol 325 Mg) 325 mg PO Q4H PRN PRN PRN Reason: PAIN, FEVER, HEADACHE Stop: 02/05/19 22:14 Last Admin: 01/07/19 12:22 Dose: 325 mg Amitriptyline HCl (Amitriptyline Hcl 50 Mg Tablet) 100 mg PO HS CAROLYNE Stop: 02/06/19 21:59 Last Admin: 01/07/19 21:03 Dose: 100 mg Enoxaparin Sodium (Enoxaparin Sodium) 40 mg SQ DAILY CAR[place] Stop: 02/06/19 09:59 Last Admin: 01/08/19 09:55 Dose: 40 mg Famotidine (Pepcid 20 Mg) 20 mg PO BID CAR[place]YNE Stop: 02/05/19 22:14 Last Admin: 01/08/19 09:54 Dose: 20 mg Sodium Chloride (Sodium Chloride 0.9% 1000 Ml) 1,000 mls @ 50 mls/hr IV .Q20H CAR[place] Stop: 02/05/19 22:14 Last Admin: 01/08/19 03:51 Dose: 200 mls/hr Ampicillin Sodium/Sulbactam Sodium (Unasyn 3gm / Nacl 100ml) 3 gm in 100 mls @ 200 mls/hr IV Q6HT CAR[place] Stop: 02/06/19 06:59 Last Admin: 01/08/19 12:04 Dose: 200 mls/hr Morphine Sulfate (Morphine Sulfate 4 Mg Inj) 4 mg IV Q4H PRN PRN PRN Reason: PAIN Stop: 01/11/19 22:14 Last Admin: 01/08/19 08:08 Dose: 4 mg Mupirocin (Bactroban Ointment) 0 gm TP PRN PRN PRN Reason: dressing change Stop: 02/06/19 08:47 Last Admin: 01/07/19 10:33 Dose: 1 gm Nicotine (Nicoderm Cq 21 Mg) 21 mg TOP Q24H10 CAROL[place]NE Stop: 02/06/19 12:29 Last Admin: 01/08/19 09:54 Dose: 21 mg Ondansetron HCl (Zofran 4 Mg/2 Ml Vial) 4 mg IV Q8H PRN PRN PRN Reason: NAUSEA/VOMITING Stop: 02/05/19 22:14 Ropinirole HCl (Requip 2mg Tab) 2 mg PO HS CAROLYNE Stop: 02/06/19 21:59 Last Admin: 01/07/19 21:04 Dose: 2 mg Intake & Output 01/08/19 01/09/19 11:59 11:59 Intake Total 5661 Output Total 1800 Balance 3861 Weight 72.1 kg Orders 01/07/19 12:30 Nicotine 21 mg [Nicoderm CQ 21 MG] 21 mg TOP Q24H10 01/07/19 22:00 AMITRIPTYLINE HCL 50 mg Tab [AMITRIPTYLINE HCL 50 mg Tablet] 100 mg PO HS Ropinirole 2Mg [Requip 2Mg Tab] 2 mg PO HS Lab Tests 01/08/19 01/08/19 01/08/19 04:47 04:47 11:57 WBC 12.4 H RBC 3.38 L Hgb 10.2 L Hct 32.5 L MCV 96.2 MCH 30.1 MCHC 31.4 L RDW 13.6 Plt Count 149 L MPV 10.4 H Sodium 137 Potassium 2.9 L* 3.4 L Chloride 105 Carbon Dioxide 26 Anion Gap 8.1 BUN 5 L Creatinine 0.40 L Estimated GFR > 60.0 Glucose 123 H Calcium 7.3 L Total Bilirubin 0.60 AST 44 H ALT 48 H Alkaline Phosphatase 97 Serum Total Protein 5.7 L Albumin 2.5 L Microbiology 01/07/19 21:33 Arm - Right Lower Wound Culture - Preliminary GRAM POSITIVE ID AND SENSITIVITY PENDING 01/06/19 19:01 Blood Blood Culture - Preliminary NO GROWTH TO DATE 01/06/19 19:01 Blood Blood Culture - Preliminary NO GROWTH TO DATE - Vitals & Intake/Output Vital Signs: Vital Signs Temperature 98.8 F 01/08/19 11:35 Pulse Rate 99 H 01/08/19 11:35 Respiratory Rate 16 01/08/19 11:35 Blood Pressure 137/82 01/08/19 11:35 O2 Sat by Pulse Oximetry 96 01/08/19 11:35 Oxygen-Last Documented O2 Percentage 2 Liters = 28% Intake & Output: Intake & Output 01/06/19 01/07/19 01/08/19 01/09/19 11:59 11:59 11:59 11:59 Intake Total 2025 5661 Output Total 1800 Balance 2025 3861 Weight 67.6 kg 72.1 kg - Lab Result Diagrams: 01/08/19 04:47 01/08/19 11:57 Lab Results-Last 24 Hrs: Lab Results-Last 24 Hours 01/08/19 01/08/19 01/08/19 Range/Units 04:47 04:47 11:57 WBC 12.4 H (4.0-10.5) K/mm3 RBC 3.38 L (4.1-5.4) M/mm3 Hgb 10.2 L (12.0-16.0) gm/dl Hct 32.5 L (35-47) % MCV 96.2 (78-100) fl MCH 30.1 (26-32) pg MCHC 31.4 L (32-36) g/dl RDW 13.6 (11.5-14.0) % Plt Count 149 L (150-450) K/mm3 MPV 10.4 H (6-9.5) fl Sodium 137 (137-145) mmol/L Potassium 2.9 L* 3.4 L (3.5-5.1) mmol/L Chloride 105 (98-107) mmol/L Carbon Dioxide 26 (22-30) mmol/L Anion Gap 8.1 (5-15) MEQ/L BUN 5 L (7-17) mg/dL Creatinine 0.40 L (0.52-1.04) mg/dL Estimated GFR > 60.0 ML/MIN Glucose 123 H (74-106) mg/dL Calcium 7.3 L (8.4-10.2) mg/dL Total Bilirubin 0.60 (0.2-1.3) mg/dL AST 44 H (14-36) U/L ALT 48 H (0-35) U/L Alkaline Phosphatase 97 (38-126) U/L Serum Total Protein 5.7 L (6.3-8.2) g/dL Albumin 2.5 L (3.5-5.0) g/dL Micro Results-Entire Visit: Microbiology 01/07/19 21:33 Wound Culture - Preliminary Arm - Right Lower GRAM POSITIVE ID AND SENSITIVITY PENDING 01/06/19 19:01 Blood Culture - Preliminary Blood NO GROWTH TO DATE 01/06/19 19:01 Blood Culture - Preliminary Blood NO GROWTH TO DATE - Radiology Exams Ordered Rad Exams-Entire Visit: Radiology Procedures Category Date Time Status FOREARM Stat Exams 01/06/19 19:29 Completed - Procedures and Test Procedures and Tests throughout Hospitalization: Therapy Orders & Screens 01/06/19 22:15 EKG REPEAT IN AM Comment: 01/07/19 00:46 OT Screen per Nursing Assess Comment: Protocol Order Physician Instructions: Greater than 3 points order OT Admission Screening Reason For Exam: Triggered on Admission Diagnosis: Right forearm cellulitis / dog bite Open Wound/Cellutlitis/Pressure Ulcers: Yes Acute Fx/ORIF/Change in wt bearing status: No Severe MUSCULOSKELETAL pain: No ADL Dysfunction: No Acute CVA w/Hemiparesis/Hemiplegia: No Decreased Functional Mobility/Strength: No Sprain/Strain: No Acute Post-op Mobility Dysfunction: No Total Points: 5 PT Screen per Nursing Assess ONCE Comment: Protocol Order Physician Instructions: Greater than 3 points order PT Admission Screenin Reason For Exam: Triggered on Admission Diagnosis: Right forearm cellulitis / dog bite Open Wound/Cellutlitis/Pressure Ulcers: Yes Acute Fx/ORIF/Change in wt bearing status: No Severe MUSCULOSKELETAL pain: No ADL Dysfunction: No Acute CVA w/Hemiparesis/Hemiplegia: No Decreased Functional Mobility/Strength: No Sprain/Strain: No Acute Post-op Mobility Dysfunction: No Total Points: 5 Smoking Cessation Education ONCE Comment: Diagnosis: Right forearm cellulitis / dog bite Smoking Status: Current every day smoker How long have you smoked: years Have you smoked in the past 12 months: Yes Do you dip or chew tobacco: No 01/07/19 04:47 Oxygen Nasal Cannula 2 lpm Comment: Diagnosis: Right forearm cellulitis / dog bite 01/07/19 10:25 PT Eval & Treat (MD Order) ROUTINE Reason for Eval:: multiple dog bites Diagnosis: Right forearm swelling due to dog bite 01/07/19 10:38 Qualify for Home Oxygen ROUTINE Comment: Diagnosis: Right forearm swelling due to dog bite Discharge Exam General Appearance: no apparent distress, alert Neurologic Exam: alert, oriented x 3, cooperative, normal mood/affect, nml cerebellar function, sensation nml, No motor deficits Eye Exam: PERRL, EOMI, eyes nml inspection Ears, Nose, Throat Exam: normal ENT inspection, pharynx normal, moist mucous membranes Neck Exam: normal inspection, non-tender, supple, full range of motion Respiratory Exam: normal breath sounds, lungs clear, No respiratory distress Cardiovascular Exam: regular rate/rhythm, normal heart sounds Gastrointestinal/Abdomen Exam: soft, No tenderness, No mass Pelvic Exam: deferred Rectal Exam: deferred Back Exam: normal inspection, normal range of motion, No CVA tenderness, No vertebral tenderness Extremity Exam: normal inspection, normal range of motion Skin Exam: normal color, warm, dry Wound Assessment: Skin/Wound Assessment Wound/Incision Assessment Start: 01/07/19 00: 46 Text: Status: Active Freq: Q6H Protocol: Document 01/08/19 12:00 BA (Rec: 01/08/19 12:34 BA [id number]) Wound/Incision Assessment Left Upper Lateral Chest Wound Assessment Shift Assessment Wound Type Puncture Wound Stage Non Pressure Wound Drainage Amount None Comment mulitple small scabbed punctures to left upper breast /axillary area. surrounding skin intact no redness or heat . Left Lower Anterior Arm Wound Assessment Shift Assessment Wound Type Puncture Drainage Amount None Comment scabbed puncture site to left anterior lower arm noted to be firm hot and red; < less regarding prior ink markings. Right Arm Wound Assessment Shift Assessment Wound Type Puncture Drainage Odor None/Absent Surrounding Tissue Edematous Primary Dressing telfa Secondary Dressing gauze fluff roll Comment CDI; changed per PT this AM. Wound Photo Photo Taken Yes Comment: per PT. Final Diagnosis/Problem List - Final Discharge Diagnosis/Problem (1) Cellulitis of right forearm Current Visit: Yes Status: Acute Assessment & Plan: will d/c her home clindamycin 300 mg po qid for 10 days Code(s): L03.113 - CELLULITIS OF RIGHT UPPER LIMB (2) Dog bite of multiple sites Current Visit: Yes Status: Acute Code(s): W54.0XXA - BITTEN BY DOG, INITIAL ENCOUNTER (3) Dog bite of right forearm with infection Current Visit: Yes Status: Acute Code(s): S51.851A - OPEN BITE OF RIGHT FOREARM, INITIAL ENCOUNTER; L08.9 - LOCAL INFECTION OF THE SKIN AND SUBCUTANEOUS TISSUE, UNSP; W54.0XXA - BITTEN BY DOG, INITIAL ENCOUNTER (4) Hypokalemia Current Visit: Yes Status: Acute Code(s): E87.6 - HYPOKALEMIA (5) Hypomagnesemia Current Visit: Yes Status: Acute Code(s): E83.42 - HYPOMAGNESEMIA - Discharge Discharge Date: 01/08/19 Disposition: Home, Self-Care Condition: Stable Prescriptions: New Clindamycin HCl 300 mg PO QID #40 capsule Continue Amitriptyline HCl [Elavil] 100 mg PO HS Ropinirole HCl [Ropinirole ER] 2 mg PO HS
[2019-01-08] MEDS ORDERED: TORAdol 30 mg Injection IV ONE (13:12)
[2019-01-08 16:17] VITALS: BP 136/76; PULSE 91; O2SAT 97
== END 2019-01-08 17:55 | disposition home or self-care (01) ==
LOC: ED 18:19 → MED SURG 21:33
PROVIDERS: ADMIT General Practice; ATTEND General Practice
DX: L03.113 Cellulitis of right upper limb (principal); S51.851A Open bite of right forearm, initial encounter; S41.152A Open bite of left upper arm, initial encounter; S21.052A Open bite of left breast, initial encounter; W54.0XXA Bitten by dog, initial encounter; E87.6 Hypokalemia; E83.42 Hypomagnesemia
CPT/HCPCS: 36415; 73090; 80048; 80053; 81001; 81025; 83605; 83735; 84132; 85025; 85027; 87040; 87070; 87077; 90471; 93005; 93268; 94760; 94762; 96365; 96367; 96374; 96375; 97161; 99285; G0378; 90686; 90714; 90715; 99284; J0295; J1650; J1885; J2270; J2405; J3475; J3480; A9270-GY